=== PATIENT | female | born 1980 | race African-American/Black ===

== ENCOUNTER 2023-12-01 17:02 | Emergency (ER) | payer MEDICAID ==
[~2023-12-01] VITALS: Ht 162.6 cm; Wt 62.0 kg
[2023-12-01 17:08] VITALS: O2SAT 97
[2023-12-01 20:24] LABS: HEMATOCRIT 38.9 % (36.0-48.0); HEMOGLOBIN 12.4 g/dL (12.0-16.0); MEAN CORPUSCULAR HEMOGLOBIN 26.5 pg (28.0-32.0); MEAN CORPUSCULAR HGB CONC 31.8 g/dL (31.0-37.0); MEAN CORPUSCULAR VOLUME 83.2 fL (81.0-99.0); PLATELET 166 x1000/uL (130-400); RED BLOOD CELL COUNT 4.68 mill/uL (4.2-5.4); WHITE BLOOD COUNT 6.2 x1000/uL (4.5-11.0)
[2023-12-01 20:32] LABS: CHLORIDE 108 mEq/L (98-107); POTASSIUM 4.7 mEq/L (3.5-5.1); SODIUM 139 mEq/L (136-145)
[2023-12-01 20:33] LABS: CALCIUM 9.2 mg/dL (8.7-10.4); CARBON DIOXIDE 24 mEq/L (21-32)
[2023-12-01 20:38] LABS: CREATININE 0.9 mg/dL (0.6-1.0); GLUCOSE 129 mg/dL (70-105); UREA NITROGEN BLOOD 11 mg/dL (9-23)
[2023-12-01 20:40] LABS: ALANINE AMINOTRANSFERASE 13 IU/L (10-49); ALBUMIN 4.3 g/dL (3.2-4.8); ASPARTATE AMINOTRANSFERASE 31 IU/L (<34); BILIRUBIN TOTAL 0.3 mg/dL (0.1-1.0); PROTEIN TOTAL 7.2 g/dL (6.0-8.3)
[2023-12-01 20:46] LABS: HCG SCREEN NEGATIVE
[2023-12-01 23:05] VITALS: BP 152/80; PULSE 62; RESP 18; TEMP 36.55848; O2SAT 97
== END 2023-12-01 23:06 | disposition home or self-care (01) ==
LOC: ER 17:02
DX: F45.9 Somatoform disorder, unspecified (principal); R56.9 Unspecified convulsions; E11.9 Type 2 diabetes mellitus without complications; D49.6 Neoplasm of unspecified behavior of brain
CPT/HCPCS: 36415; 80053; 84703; 85027; 93005; 99284